=== PATIENT | female | born 1955 | race Caucasian/White ===

== ENCOUNTER 2018-02-02 17:06 | Outpatient (REF) | payer MEDICAID, SELFPAY ==
[2018-02-02 20:27] LABS: Casts Negative LPF (Negative); Epithelial Cells Moderate HPF (Negative); Mucus Trace (Negative); RBC 0-2 (0-2)
[2018-02-02 20:28] LABS: C & S Indicated? No/Sq. Contamination
[2018-02-02 20:29] LABS: Crystals Negative HPF (Negative)
[2018-02-04 14:39] LABS: Chlamydia Result Negative; GC Result Negative; Specimen Description URINE
[2018-02-04 18:12] LABS: Bacteria Few HPF (Negative)
== END 2018-02-02 17:26 ==
LOC: NCHCN 17:06
PROVIDERS: PCP Internal Medicine; Visit Provider Physician Assistant Medical
DX: R39.15 Urgency of urination (principal); M25.512 Pain in left shoulder
CPT/HCPCS: 87491; 87591; 81015; 87086

== ENCOUNTER 2018-02-10 11:01 | Outpatient (CLI) | payer MEDICAID, SELFPAY ==
--- NOTE | 2018-02-10 10:39 | DI.RAD_ITS ---
SYMPTOM/DIAGNOSIS: PAIN, FELL, M25.512 LEFT SHOULDER: There is spurring at the undersurface of the acromion. Mild spurring is seen at the glenoid. The glenohumeral joint space is well maintained. IMPRESSION: Degenerative changes, greatest at the undersurface of the acromion.
== END 2018-02-10 11:21 ==
PROVIDERS: PCP Internal Medicine; Visit Provider Physician Assistant Medical
DX: M25.512 Pain in left shoulder (principal); M19.012 Primary osteoarthritis, left shoulder
CPT/HCPCS: 73030

== ENCOUNTER 2018-02-25 10:51 | Outpatient (CLI) | payer MEDICAID, SELFPAY | END 2018-02-25 11:11 | PROVIDERS: PCP Internal Medicine; Visit Provider Nurse Practitioner Gerontology | DX: R69 Illness, unspecified (principal) | CPT/HCPCS: 82565 ==

== ENCOUNTER 2018-06-06 01:10 | Outpatient (CLI) | payer MEDICAID, SELFPAY | END 2018-06-06 01:30 | PROVIDERS: PCP Internal Medicine; Visit Provider Nurse Practitioner Gerontology | DX: R69 Illness, unspecified (principal) | CPT/HCPCS: 36415; 82565 ==

== ENCOUNTER 2019-06-01 16:17 | Outpatient (REF) | payer MEDICARE, MEDICAID, SELFPAY | END 2019-06-01 16:37 | LOC: NCHCN 16:17 | PROVIDERS: PCP Internal Medicine; Visit Provider Nurse Practitioner Family | DX: N39.0 Urinary tract infection, site not specified (principal) | CPT/HCPCS: 87086 ==

== ENCOUNTER 2019-08-24 15:22 | Outpatient (REF) | payer MEDICARE, MEDICAID, SELFPAY ==
[2019-08-24 19:32] LABS: ALT 40 U/L (14-59); AST 22 U/L (15-37); Anion Gap 9.4 mmol/L (3-11); BUN 20 mg/dL (7-18); CO2 25.6 mmol/L (21.0-32.0); CREATININE 1.37 mg/dL (0.55-1.02); Calcium 9.1 mg/dL (8.5-10.1); Calculated LDL 94 mg/dL (<100); Chloride 106 mmol/L (98-107); Cholesterol 181 mg/dL (<200); Estimated GFR 38.57 (mL/min/1.73m2); Glucose 106 mg/dL (74-106); HDL Cholesterol 72 mg/dL (40-60); Potassium 4.5 mmol/L (3.5-5.1); Sodium 141 mmol/L (136-145); Triglyceride 75 mg/dL (<150)
[2019-08-24 19:49] LABS: Creatine Kinase 128 U/L (26-192)
== END 2019-08-24 15:42 ==
LOC: NCHCN 15:22
PROVIDERS: PCP Internal Medicine; Visit Provider Nurse Practitioner Family
DX: I10 Essential (primary) hypertension (principal); E78.5 Hyperlipidemia, unspecified; N39.0 Urinary tract infection, site not specified
CPT/HCPCS: 80048; 80061; 82550; 84450; 84460; 87086

== ENCOUNTER 2019-10-10 16:42 | Outpatient (REF) | payer MEDICARE, MEDICAID, SELFPAY | END 2019-10-10 17:02 | LOC: NCHCN 16:42 | PROVIDERS: PCP Internal Medicine; Visit Provider Physician Assistant | DX: N39.0 Urinary tract infection, site not specified (principal) | CPT/HCPCS: 87086 ==

== ENCOUNTER 2019-12-11 20:12 | Outpatient (REF) | payer MEDICARE, MEDICAID, SELFPAY | END 2019-12-11 20:32 | LOC: NCHCN 20:12 | PROVIDERS: PCP Internal Medicine; Visit Provider Physician Assistant | DX: N39.0 Urinary tract infection, site not specified (principal) | CPT/HCPCS: 87086 ==

== ENCOUNTER 2020-01-26 12:36 | Outpatient (REF) | payer MEDICARE, MEDICAID, SELFPAY ==
[2020-01-30 07:27] LABS: Patient Race White; SARS-CoV-2 RNA Undetected (Undetected); SARS-CoV-2 Specimen Source Nasal
== END 2020-01-26 12:56 ==
LOC: NCHCN 12:36
PROVIDERS: PCP Internal Medicine; Visit Provider Physician Assistant
DX: Z20.828 Contact with and (suspected) exposure to other viral communicable diseases (principal)
CPT/HCPCS: U0003

== ENCOUNTER 2020-02-12 01:03 | Outpatient (CLI) | payer MEDICARE, MEDICAID, SELFPAY ==
[2020-02-12 08:13] LABS: CREATININE 1.33 mg/dL (0.55-1.02); Estimated GFR 39.92 (mL/min/1.73m2)
[2020-02-12] MEDS: Normal Saline - Diluent 50 ML VIAL IV (09:07)
[2020-02-12] MEDS: Omnipaque 350 MG/ML 100 ML BTL IJ (09:08)
--- NOTE | 2020-02-12 09:10 | DI.CT_ITS ---
EXAM: CT ABDOMEN PELVIS WO/W CLINICAL HISTORY: UTI,N39.0,URINARY SYMPTOMS,R39.9,CHRONIC PELVIC PRESSURE. TECHNIQUE: Imaging Protocol: Axial computed tomography images with coronal and sagittal reformatted images were created and reviewed CONTRAST MATERIAL: Intravenous: Omnipaque 350 Contrast volume:100 ml Oral: None COMPARISON: No exams were available for comparison FINDINGS: Performed without and with IV contrast. Visualized lung bases: No pleural effusions. No nodules. ABDOMEN: There is no ascites. LIVER: There are no focal hepatic lesions nor dilatation of intrahepatic ducts. GALLBLADDER/BILIARY: No obvious gallbladder pathology. CBD is not dilated. PANCREAS: No evidence of pancreatic mass nor dilatation of the pancreatic duct. SPLEEN: Spleen is not enlarged. There are no intrasplenic lesions. Splenic and portal veins are winters nt. ADRENALS: There are no significant adrenal masses. KIDNEYS: No calculi nor hydronephrosis. No solid renal masses. There are prominent bilateral parapelv ic cysts in both kidneys noted. Renal pelves are splayed over the cysts but not obstructed. Ureters are not dilated. No obvious abnormality in the urinary bladder. ABDOMINAL AORTA: Abdominal aorta is not enlarged and there is no [id number] adenopat hy. ABDOMINAL WALL/GI: No evidence of significant anterior abdominal wall hernia. No bowel obstruction. PELVIS: LYMPH NODES: There is no intrapelvic nor inguinal adenopathy. GI: No evidence of appendicitis.No evidence of sigmoid diverticulitis. URINARY BLADDER: No calculi nor masses evident REPRODUCTIVE: Uterus size upper normal. Fundus of the uterus slightly indents the anterior wall of t he urinary bladder. No abnormal adnexal masses nor free fluid. OSSEOUS: No significant osseous lesions. IMPRESSION: 1. There are bilateral parapelvic cysts in both kidneys. The renal pelves are splayed over the cyst but there is no hydronephrosis. No other significant renal findings. 2. Uterus size is upper normal. No obvious large urine fibroids although the uterus does slightly in dent urinary bladder. 3. No abnormal adnexal masses and no free fluid in pelvis. 4. No ascites RADIATION DOSE DELIVERED: 2,701.48mGy.cm Total DLP DATA REPOSITORY: All CT scans at this facility are submitted to the National Radiology Data Registry (NRDR) Dose Index Registry (DIR) with the [employer] (ACR). RADIATION OPTIMIZATION: All CT scans at this facility use at least one of these dose optimization te chniques: automated exposure control; mA and/or kV adjustment per patient size (includes targeted exa ms where dose is matched to clinical indication); or iterative reconstruction.
== END 2020-02-12 01:23 ==
PROVIDERS: PCP Internal Medicine; Visit Provider Physician Assistant
DX: N28.1 Cyst of kidney, acquired (principal); N39.0 Urinary tract infection, site not specified; R39.89 Other symptoms and signs involving the genitourinary system; R10.2 Pelvic and perineal pain
CPT/HCPCS: 74178; 82565; J3490

== ENCOUNTER → 2020-03-06 12:50 | Outpatient (BNVA) | payer MEDICARE, MEDICAID, SELFPAY | PROVIDERS: PCP Internal Medicine; Referring Provider Internal Medicine; Visit Provider Nurse Practitioner Gerontology | DX: N28.1 Cyst of kidney, acquired (principal); R31.21 Asymptomatic microscopic hematuria | CPT/HCPCS: 81003; 99214 ==

== ENCOUNTER 2020-10-04 17:19 | Outpatient (REF) | payer MEDICARE, MEDICAID, SELFPAY ==
--- NOTE | 2020-10-04 16:05 | PAPFT_PTH ---
PATIENT: Haley Nicole LOC: [facility]#:[id number] AGE/SX: 65/F ROOM: RE10/04/[address]: Delmi Arvizu : 1955 BED: DIS: 10/04/2020 SPEC #: [id number] RECD: 10/07/20 13:12 STATUS: MARK RECandice #: [id number] DEISY: 10/04/20 16:[address]: Delmi Arvizu DEPT: [facility] Cytology RECD BY: Adry Tate ENTERED: 10/07/20 13:13 SP TYPE: PAPFT OTHR DR: Mazin Coronado Tissues: 1 - CX/ENDOCX FOR PAP SMEARS Procedures: PAP THIN PREP/[facility] Screening HPV DNA PROBE Comments: [id number] (CHLAMYDIA/GC)
[2020-10-04 18:32] LABS: Hemoglobin A1C 5.7 % (<5.7)
[2020-10-04 18:34] LABS: Anion Gap 9.6 mmol/L (3-11); BUN 19 mg/dL (7-18); CO2 26.4 mmol/L (21.0-32.0); CREATININE 1.1 mg/dL (0.55-1.02); Calcium 8.9 mg/dL (8.5-10.1); Chloride 105 mmol/L (98-107); Estimated GFR 49.54 (mL/min/1.73m2); Glucose 99 mg/dL (74-106); Potassium 4.3 mmol/L (3.5-5.1); Sodium 141 mmol/L (136-145)
[2020-10-09 15:21] LABS: Chlamydia Result Negative (Negative); GC Result Negative (Negative)
== END 2020-10-04 17:20 | disposition home or self-care (01) ==
LOC: NCHCN 17:19
PROVIDERS: PCP Internal Medicine; Visit Provider Physician Assistant
DX: I10 Essential (primary) hypertension (principal); E78.5 Hyperlipidemia, unspecified; R73.9 Hyperglycemia, unspecified; N28.9 Disorder of kidney and ureter, unspecified; Z12.4 Encounter for screening for malignant neoplasm of cervix; Z01.419 Encounter for gynecological examination (general) (routine) without abnormal findings; Z87.42 Personal history of other diseases of the female genital tract; Z86.19 Personal history of other infectious and parasitic diseases; Z91.89 Other specified personal risk factors, not elsewhere classified; Z11.51 Encounter for screening for human papillomavirus (HPV); Z11.3 Encounter for screening for infections with a predominantly sexual mode of transmission
CPT/HCPCS: 80048; 87491; 87591; 88142; 83036; 87624

== ENCOUNTER 2021-01-03 00:35 | Outpatient (CLI) | payer MEDICARE, MEDICAID, SELFPAY ==
--- NOTE | 2021-01-03 | DI.DEXA_ITS ---
Exam(s) XR DEXA BONE DENSITY W/WO CHICO EXAM: XR DEXA BONE DENSITY W/WO CHICO CLINICAL HISTORY: SCREENING FOR OSTEOPOROSIS IN POSTMENOPAUSAL WOMAN,Z78.0 TECHNIQUE: COMPARISON: No exams were available for comparison FINDINGS: DEXA scan was performed according to the usual protocol. The lateral vertebral scanogram shows no evidence of a vertebral compression fracture. Left hip scanning shows T-score -0.3 with left femoral neck T-score -1.5. Lumbar spine scanning shows T-score -0.9. Left forearm scanning shows T-score 0.3. IMPRESSION: Findings are consistent with osteopenia according to WHO criteria. RADIATION DOSE DELIVERED: Total DLP
--- NOTE | 2021-01-03 | DI.MAMMO_ITS ---
Exam(s) MAMMO SCREENING EXAM: MAMMO SCREENING CLINICAL HISTORY: SCREENING, Z12.31 TECHNIQUE: Mammograms were interpreted according to the usual protocol including computer analysis w [employer] CAD system, tomosynthesis and C-view imaging. COMPARISON: FINDINGS: Breasts are of moderate density. No dominant mass or clumped microcalcification is identified in eit her breast. Current examination is compared with previous examination of August 2017 and there is incr eased prominence of a focal area of asymmetric density projected in the central portion of right [address] on CC view only. Additional mammographic views of this area are requested to include CC spot comp ression view of the right breast. No other significant change seen. IMPRESSION: Additional mammographic views of the right breast requested as described above. Breast ultrasound m ay be indicated as well depending on the results additional mammographic views. BI-RADS Category 0 - Assessment Incomplete: Need additional imaging evaluation Breast Density - Category B - Scattered areas of fibroglandular density
== END 2021-01-03 00:55 ==
PROVIDERS: PCP Internal Medicine; Visit Provider Physician Assistant
DX: Z12.31 Encounter for screening mammogram for malignant neoplasm of breast (principal); R92.8 Other abnormal and inconclusive findings on diagnostic imaging of breast; M85.88 Other specified disorders of bone density and structure, other site; Z78.0 Asymptomatic menopausal state
CPT/HCPCS: 77063; 77067; 77080

== ENCOUNTER 2022-10-20 16:34 | Outpatient (REF) | payer MEDICARE, SELFPAY ==
[2022-10-20 21:10] LABS: ALT 19 U/L (14-59); AST 21 U/L (15-37); Albumin 3.5 g/dL (3.4-5.0); Alkaline Phosphatase 71 U/L (46-116); Anion Gap 7.1 mmol/L (3-11); BUN 17 mg/dL (7-18); Bilirubin, Total 0.4 mg/dL (0.2-1.0); CO2 25.9 mmol/L (21.0-32.0); CREATININE 1.1 mg/dL (0.55-1.02); Chloride 107 mmol/L (98-107); Estimated GFR 54.39 (mL/min/1.73m2); Glucose 99 mg/dL (74-106); Potassium 4.6 mmol/L (3.5-5.1); Sodium 140 mmol/L (136-145); Total Protein 7.4 g/dL (6.4-8.2)
[2022-10-20 21:26] LABS: Abs Immature Grans 0.02 10^3/uL (0.0-0.06); Absolute Basophil Count 0.05 10^3/uL (0.0-0.2); Absolute Eosinophil Count 0.26 10^3/uL (0.0-0.7); Absolute Lymphocyte Count 2.29 10^3/uL (1.2-3.4); Absolute Neutrophil Count 3.97 10^3/uL (1.2-6.7); Basophils % 0.7; Eosinophils % 3.6; HCT 44.4 % (36.0-46.0); Immature Grans % 0.3; Lymphocytes % 31.4; MCH 30.4 pg (27.0-33.0); MCHC 33.8 % (32.0-36.0); MCV 90 fL (80-95); MPV 11.1 fL (8.0-11.0); Monocytes % 9.6; Neutrophils % 54.4; Platelet Count 304 10^3/uL (130-400); RBC 4.94 10^6/uL (3.93-5.22); RDW 13.7 % (11.7-14.6); RDW-SD 45.4 fL; WBC 7.29 10^3/uL (4.4-10.8)
[2022-10-20 22:42] LABS: Hemoglobin A1C 5.5 % (<5.7)
== END 2022-10-20 16:35 | disposition home or self-care (01) ==
LOC: NCHCN 16:34
PROVIDERS: PCP Internal Medicine; Visit Provider Physician Assistant
DX: R73.9 Hyperglycemia, unspecified (principal); I10 Essential (primary) hypertension; E78.5 Hyperlipidemia, unspecified; N28.9 Disorder of kidney and ureter, unspecified
CPT/HCPCS: 80053; 83036; 85025

== ENCOUNTER → 2023-04-28 08:33 | Outpatient (BNVA) | payer MEDICARE, SELFPAY | PROVIDERS: PCP Physician Assistant; Referring Provider Physician Assistant; Visit Provider Physical Therapy Assistant | DX: Z12.11 Encounter for screening for malignant neoplasm of colon (principal) ==

== ENCOUNTER 2023-05-10 08:21 | Day surgery (SDC) | payer MEDICARE, SELFPAY ==
--- NOTE | 2023-05-09 18:24 | W.PM.DSUDISC ---
Date of service: 05/10/23 Time of Service: 09:59 Discharge Plan Disposition Patient Disposition: Home Condition: Good Discharge Details Reason For Visit: screening colonoscopy Attending Provider: Marco Mccormick Primary Care Provider: Delmi Arvizu Home Meds and New Rx's Prescriptions: Continued atorvastatin [Lipitor] 10 mg tablet 10 mg PO DAILY aspirin [Adult Aspirin Regimen] 81 mg tablet,delayed release (DR/EC) 81 mg PO DAILY losartan 50 mg tablet 50 mg PO DAILY albuterol sulfate [Ventolin HFA] 90 mcg/actuation HFA aerosol inhaler 2 puff inhalation Q6H PRN tafluprost (PF) 0.0015 % dropperette 1 drp ophthalmic (eye) QPM Patient Comments: INSTILL 1 DROP IN THE RIGHT EYE EVERY NIGHT AT BEDTIME Discontinued polyethylene glycol 3350 17 gram/dose powder 238 g PO ONCE Qty: 238 0RF Rx Instructions: take per colonoscopy instructions bisacodyl [Dulcolax (bisacodyl)] 5 mg tablet,delayed release (DR/EC) 5 mg PO ONCE Qty: 4 0RF Rx Instructions: take per colonoscopy instructions Discharge Instructions Instructions: Diverticulosis (GEN), Diverticulosis Diet (GEN) Additional Instructions: Mazin, we were able to complete your colonoscopy today without any difficulty. I did not see any tumors, polyps, or anything else worrisome. You do have diverticulosis. Diverticula are little weak spots in the muscular wall of the colon. They typically accumulate as we get older. They can get infected and inflamed, and when that happens, patients typically experience quite a bit of pain usually on the left side or lower part of their abdomen. This is often times associated with fevers, and typically, patients are treated with antibiotics. I have attached some general information here regarding diverticulosis of preventative measures. If you have any questions, please do not hesitate to call. Otherwise, I recommend another colonoscopy in 10 years. 1. If tolerated, consume a soft, low fiber diet for 1-2 days. 2[address] Do not drive, drink alcohol, operate machinery, make critical decisions, or do activities that require coordination or balance for 24 hours. 3. Because air was put into your colon during the procedure, expelling air from your rectum (passing gas or farting) is normal. 4. You may not have a bowel movement for 1-3 days because of the colonoscopy prep. This is normal. 5. Go directly to the emergency room if you notice any of the following: Develop chills (warm to touch), or if you have a thermometer and your temperature is above 101 Difficulty breathing or difficultly swallowing Persistent vomiting Severe abdominal pain, other than gas cramps Severe chest pain Black, tarry stools Any bleeding ? exceeding one tablespoon 6. Call your physician if the site where your intravenous was started becomes red, swollen, painful, and warm to touch. 7. Your physician has reviewed your pre-procedure medications. Please continue to take those medications as previously ordered. You will be given specific information/education regarding any changes to your medications before leaving. Activity:: Activity as Tolerated Diet:: As Tolerated Discharge Orders Discharge Orders: Discharge Order (Routine); Ordered 05/09/23 Ordered By: Marco Mccormick DS: Diagnosis Discharge Diagnosis (1) Encounter for screening colonoscopy: Status: Acute Asessment and Plan: Diverticulosis; otherwise negative screening colonoscopy. Recommend 10-year follow-up
--- NOTE | 2023-05-09 18:25 | W.COLOREPORT ---
Date of service: 05/10/23 Time of Service: 10:00 Colonoscopy Report Date of procedure: 05/10/23 Pre-op diagnosis general: screening colonoscopy Post-op diagnosis procedure note: other (Diverticulosis) Procedure: colonoscopy Surgeon: Marco Mccormick Anesthesia Type: General:No Airway Estimated blood loss (mL): 0 Pathology: none sent Complications: None Disposition: same day Indications: Haley is a 67 year old woman who needs her next screening colonoscopy Prep: Miralax/Dulcolax Procedure Start Time: 09:36 Procedure End Time: 09:48 Retraction Time: 7 Findings: Diverticulosis Procedure Description: After the induction of monitored anesthetic care, and with the patient in left lateral decubitus position, I began by performing an external anorectal exam.? Perineum and skin were normal, as was the anal verge.? There was evidence of external hemorrhoids.? Next, I performed a digital rectal exam.? I did not appreciate any abnormal findings.? Next, I advanced a colonoscope into the rectal vault.? I performed retroflexion.? This appeared normal.? Using insufflation, I then advanced the colonoscope beyond the rectal folds and into the sigmoid colon before advancing towards the cecum.? There was sigmoid diverticulosis, and some occasional diverticula scattered along the length of the ascending and transverse colons as well..? The scope was noted to be in the cecum by identification of the ileocecal valve and appendiceal orifice.? I then began withdrawing the colonoscope using repeated irrigation as necessary for full evaluation of the colonic mucosa. ?Once the scope was withdrawn to the level of the rectum, great care was taken to examine portions of the rectal folds.? I did not see any signs of tumors, or polyps. Finally, the scope was withdrawn and the patient was brought to the same-day surgery recovery unit as the anesthetic wore off. ?The findings and instructions were shared with the patient prior to discharge. [place] Bowel Prep [place] Bowel Prep Right Colon: 3 Left Colon: 2 Transverse Colon: 3 Total Score: 8
[2023-05-10 08:28] VITALS: BP 159/79; PULSE 88; RESP 16; TEMP 36.5; O2SAT 98
[2023-05-10] MEDS: Lactated Ringers 1,000 ML 80 ML IV (09:01)
--- NOTE | 2023-05-10 09:18 | W.ANESPRE ---
General Info Date of Service Date Performed: 05/10/23 Height: 4 ft 11 in Weight: 75.7 kg Body Mass Index (BMI): 33.7 Surgical Procedure: Operation Date: 05/10/23 09:50 Proposed Procedure Side Surgeon amos Mccormick MD Meds Allergies and Home Medications Allergies Allergy/AdvReac Type Severity Reaction Status Date / Time lisinopril AdvReac cough Verified 05/10/23 08:34 Home Medication Medication Instructions Recorded aspirin 81 mg tablet,delayed 81 mg PO DAILY 02/10/18 release (Adult Aspirin Regimen) atorvastatin 10 mg tablet (Lipitor) 10 mg PO DAILY 02/10/18 losartan 50 mg tablet 50 mg PO DAILY 10/30/19 albuterol sulfate 90 mcg/actuation 2 puff inhalation Q6H PRN 12/08/22 aerosol inhaler (Ventolin HFA) tafluprost (PF) 0.0015 % eye drops 1 drp ophthalmic (eye) QPM 05/06/23 in a dropperette Current Visit Medications: Current Medications Generic Name Dose Route Start Last Admin Trade Name Freq PRN Reason Stop Dose Admin Hyoscyamine Sulfate 0.125 mg 05/09/23 18:29 Hyoscyamine 0.125 Mg Sl/Oral/Chew SL 06/08/23 18:28 DIRECTED PRN Ringer's Solution 1,000 mls @ 80 mls/hr 05/10/23 06:00 05/10/23 09:01 IV 06/06/23 23:59 80 mls/hr INFUSION SHYANNE Administration IV Miscellaneous Supplies 1 each 05/10/23 06:00 Iv Access IV 06/06/23 23:59 DIRECTED SHYANNE Ondansetron HCl 4 mg 05/09/23 18:29 Ondansetron 4 Mg/2 Ml Vial IVP 06/08/23 18:28 Q4H PRN PRN Nausea / Vomiting Sodium Chloride 0 ml 05/10/23 06:00 Normal Saline Flush 10 Ml Syr IV 06/06/23 23:59 PRN PRN Sodium Chloride 0 ml 05/10/23 06:00 Normal Saline 10 Ml Vial IJ 06/06/23 23:59 DIRECTED PRN Sterile Water 0 ml 05/10/23 06:00 Water,Injection,Sterile 10 Ml Vial IJ 06/06/23 23:59 DIRECTED PRN PFSH Active Problems Active Problems: Problem Status Onset Code Encounter for screening colonoscopy Z12.11 Hypertension I10 Osteopenia M85.80 Carotid artery stenosis I65.29 Asymptomatic microscopic hematuria R31.21 Renal cyst N28.1 Medical History Medical History (Updated 05/09/23 @ 18:24 by Marco Mccormick MD) Hirsutism Allergic rhinitis Blindness of right eye Central retinal vein occlusion GERD (gastroesophageal reflux disease) Mild exercise-induced asthma Renal insufficiency HLD (hyperlipidemia) Benign essential hypertension Tobacco Smoking/Tobacco Use Status: Former Tobacco Use Alcohol Alcohol Intake: current Alcohol intake frequency: a few times a month Substance Use Substance use: Never Substance use type: does not use Vital Signs and Lab Results Vital Signs Most Recent Vital Signs in EMR: Most Recent Vital Signs Temp Pulse Resp BP Pulse Ox 36.5 C 88 16 159/79 H 98 05/10/23 08:28 05/10/23 08:28 05/10/23 08:28 05/10/23 08:28 05/10/23 08:28 Lab Results Blood Type / Crossmatch: No Data to Display Complete Blood Count: No Data to Display Complete Metabolic Panel: No Data to Display Liver Function Panel: No Data to Display Coagulation Panel: No Data to Display Cardiac Panel: No Data to Display Arterial Blood Gas: No Data to Display Venous Blood Gas: No Data to Display Pancreas Panel: No Data to Display Thyroid Panel: No Data to Display Infectious Disease: No Data to Display Blood Cultures: No Data to Display Toxicology Panel: No Data to Display Anesthesia Assessment and Plan Anesthesia History Personal History: No History of Anesthesia Complications Family History: No Family History of Anesthesia Complications Exercise Tolerance Exercise Tolerance: Metabolic Equivalents>4 Pertinent Negatives Pertinent Negatives: No Symptoms of GERD, No Major Cardiovascular Symptoms or Complaints, No Major Pulmonary Symptoms or Complaints and No History of CVA/TIA Cardiac & Pulmonary Exam Cardiac Exam: Normal S1/S2 Heart Sounds Pulmonary Exam: Clear Bilateral Breath Sounds Implantable Cardiac Device Does patient have a Pacemaker or an ICD?: No Airway Exam Known Difficult Airway: No Mallampati Class: 2 Mouth Opening: Normal (> 3cm) Thyromental Distance: Greater than 3 cm Neck Range of Motion: Full ROM Neck Circumference: Normal Teeth Condition: Normal Dentition ASA Classification ASA Score: ASA 2 Emergency Case?: No NPO Status NPO Status: NPO Clears >2 hours, Solids >8 hours Anesthesia Plan Resuscitation Status: Full Code Anesthesia Technique: General Anesthesia Airway Planned: Natural Airway Monitors Used: Standard Monitors Preoperative Comments:: Previous colonoscopy unremarkable. Rare GERD treated with Tums.
[2023-05-10 09:24] VITALS: BMI 33.7
[2023-05-10 09:57] VITALS: BP 129/60; PULSE 80; RESP 16; TEMP 36.5; O2SAT 97
--- NOTE | 2023-05-10 10:11 | W.ANESPOSTOP ---
Postoperative Evaluation Date, Time and Location Date Performed: 05/10/23 Time Performed: 10:09 Patient Location: Day Surgery Unit Vital Signs Most Recent Imported Vital Signs: Most Recent Vital Signs Temp Pulse Resp BP Pulse Ox 36.5 C 80 16 129/60 97 05/10/23 09:57 05/10/23 09:57 05/10/23 09:57 05/10/23 09:57 05/10/23 09:57 Pain Score Most Recent Pain Score: Most Recent Pain Score Pain Level 0 05/10/23 09:57 Assessment Mental Status: Awake (Alert & Oriented to Patient Baseline) Airway and Respiratory Function: Patent airway with normal (patient baseline) respiratory exam Cardiovascular Function: Hemodynamically Stable Hydration Status: Adequately Hydrated Nausea & Vomiting: No Nausea or Vomiting Pain: Pain is tolerable per patient (some gas cramping) Peripheral Nerve Block: Patient did not receive a nerve block
[2023-05-10 10:30] VITALS: BP 137/69; PULSE 77; RESP 16; TEMP 36.5; O2SAT 96
== END 2023-05-10 08:22 | disposition home or self-care (01) ==
LOC: SUR 08:21
PROVIDERS: PCP Physician Assistant; Visit Provider Surgery
PROC: 0DJD8ZZ Inspection of Lower Intestinal Tract, Via Natural or Artificial Opening Endoscopic (ICD-10-PCS; CPT 45378; principal; 2023-05-10 09:45)
DX: Z12.11 Encounter for screening for malignant neoplasm of colon (principal); K57.30 Diverticulosis of large intestine without perforation or abscess without bleeding
CPT/HCPCS: G0121; J2001; J2704

== ENCOUNTER 2023-10-21 02:01 | Outpatient (CLI) | payer MEDICARE, SELFPAY ==
--- NOTE | 2023-10-21 | DI.MAMMO_ITS ---
Exam(s) MAMMO SCREENING EXAM: MAMMO SCREENING CLINICAL HISTORY: Z12.31 Screening TECHNIQUE: Bilateral full field digital CC and MLO mammographic images were obtained with 3D tomosyn thesis and utilizing computer aided detection (CAD). COMPARISON: Available for comparison. FINDINGS: Masses/Architectural Distortion: None seen. Microcalcifications: No suspicious pleomorphic-type are seen. Skin Thickening/Nipple Retraction: None. IMPRESSION: 1. No significant interval change with no specific features of malignancy noted. 2. Unless there is more urgent need, screening mammography is recommended, as per [employer] guidelines. BI-RADS Category 1 - Negative Breast Density - Category B - Scattered areas of fibroglandular density Breast density category C or D implies that the patient has dense breast tissue. Dense breast tissue is very common and is not abnormal but dense breast tissue can make it harder to find cancer on a ma mmogram. Also, dense breast tissue may increase their breast cancer risk. This information about the result of the mammogram report was provided to the patient to raise their awareness. Use this report when you speak with the patient about their risks for breast cancer, which includes their family hist ory. At that time, you may recommend for more screening tests (Ultrasound or MRI) as they might be us eful based on their risk. A negative radiographic report should not delay biopsy if a dominant or clinically suspicious mass is present. Up to ten percent of cancers are not identified on mammography. A negative report may reinforce clinical impression. Adenosis and dense breasts may obscure an underlying neoplasm. False positive reports average 6 to 10%. Patient will receive a letter notifying them of these results.
--- NOTE | 2023-10-21 | DI.US_ITS ---
Exam(s) US CAROTID EXAM: US CAROTID CLINICAL HISTORY: I65.23 Carotid artery stenosis, bilat mild. TECHNIQUE: Ultrasound carotids performed using grayscale, color-flow, and spectral Doppler imaging. COMPARISON: No exams were available for comparison FINDINGS: RIGHT CAROTID ARTERY: Plaque: Moderate calcific plaque is seen in the carotid bulb. Velocity elevation: No hemodynamically significant velocity elevation is present. LEFT CAROTID ARTERY: Plaque: There is mild calcific plaque seen in the carotid bulb. Velocity elevation: No hemodynamically significant velocity elevation is present. VERTEBRAL ARTERIES: Antegrade flow. Measurements: R Bulb: 124.6cm/s PS / 35.3cm/s ED R CCA: 62.5cm/s PS / 12.2cm/s ED R ECA: 81.1cm/s PS / 10.1cm/s ED R ICA Prox: 93.5cm/s PS / 24.1cm/s ED R ICA Mid: 75.2cm/s PS / 15cm/s ED R ICA Distal: 98.9cm/s PS /27.7cm/s ED R Vert: 62.4cm/s PS / 18.6cm/s ED R SVR: 2 R DVR: 2.9 L Bulb: 67.2cm/s PS / 20.6cm/s ED L CCA: PS / 19.3cm/s ED L ECA: 81.5cm/s PS / 8.9cm/s ED L ICA Prox: 68.7cm/s PS / 22.8cm/s ED L ICA Mid: 93.3cm/s PS / 34cm/s ED L ICA Distal: 78.8cm/s PS / 24.4cm/s ED L Vert: 26.6cm/s PS / 6.8cm/s ED L SVR: 1.1 L DVR: 1.8 IMPRESSION: No evidence for hemodynamically significant carotid stenosis. Criteria for Carotid Stenosis: Normal: ICA PSV <125 cm/s no plaque or intimal thickening is visible. <50% stenosis: ICA PSV <125 cm/s and plaque or intimal thickening is visible. 50-69% stenosis: ICA PSV is 125-250 cm/s and plaque is visible. >70% stenosis to near occlusion: ICA PSV >250 cm/s with visible plaque and luminal narrowing. DATA REPOSITORY:
--- NOTE | 2023-10-21 | DI.DEXA_ITS ---
Exam(s) XR DEXA BONE DENSITY W/WO CHICO EXAM: XR DEXA BONE DENSITY W/WO CHICO CLINICAL HISTORY: Z78.0 Postemenopausal,M85.80 Osteopenia TECHNIQUE: COMPARISON: CR XR DEXA BONE DENSITY W/WO CHICO from 01/03/2021 FINDINGS: Lateral Spine Image: Unremarkable. No compression deformities identified. Left hip: Total T-Score: -0.6. This compares to -0.3 on the prior examination. Total Z-Score: 1.0 T- and Z-scores: No evidence of osteoporosis. Lumbar Spine: Total T-Score: -0.8. This compares to -1.0 on the prior examination. Total Z-Score: 1.4 T- and Z-scores: No evidence of osteoporosis. IMPRESSION: No evidence of osteoporosis.
== END 2023-10-21 02:21 ==
LOC: DI 02:01
PROVIDERS: PCP Physician Assistant; Visit Provider Physician Assistant
DX: Z78.0 Asymptomatic menopausal state (principal); I65.23 Occlusion and stenosis of bilateral carotid arteries; Z13.820 Encounter for screening for osteoporosis
CPT/HCPCS: 77063; 77067; 77080; 93880

== ENCOUNTER 2023-12-10 11:33 | Outpatient (REF) | payer MEDICARE, SELFPAY | END 2023-12-10 11:34 | disposition home or self-care (01) | LOC: NCHCN 11:33 | PROVIDERS: PCP Physician Assistant; Visit Provider Physician Assistant | DX: R82.998 Other abnormal findings in urine (principal) | CPT/HCPCS: 87077; 87086; 87186 ==

== ENCOUNTER 2023-12-13 10:09 | Outpatient (REF) | payer MEDICARE, SELFPAY ==
[2023-12-13 19:21] LABS: Abs Immature Grans 0.01 10^3/uL (0.0-0.06); Absolute Basophil Count 0.06 10^3/uL (0.0-0.2); Absolute Eosinophil Count 0.36 10^3/uL (0.0-0.7); Absolute Lymphocyte Count 1.51 10^3/uL (1.2-3.4); Absolute Monocyte Count 0.45 10^3/uL (0.1-0.8); Absolute Neutrophil Count 2.81 10^3/uL (1.2-6.7); Basophils % 1.2 %; Eosinophils % 6.9 %; HGB 14.8 g/dL (11.2-15.7); Immature Grans % 0.2 %; MCH 30.5 pg (27.0-33.0); MCHC 33.6 % (32.0-36.0); MCV 91 fL (80-95); MPV 10.8 fL (8.0-11.0); Monocytes % 8.7 %; Platelet Count 253 10^3/uL (130-400); RBC 4.86 10^6/uL (3.93-5.22); RDW 13.9 % (11.7-14.6); RDW-SD 46.5 fL
[2023-12-13 20:34] LABS: ALT 24 U/L (14-59); AST 21 U/L (15-37); Albumin 3.6 g/dL (3.4-5.0); Alkaline Phosphatase 66 U/L (46-116); Anion Gap 10.5 mmol/L (3-11); BUN 20 mg/dL (7-18); Bilirubin, Total 0.54 mg/dL (0.2-1.0); CO2 23.5 mmol/L (21.0-32.0); Calcium 8.7 mg/dL (8.5-10.1); Calculated LDL 87 mg/dL (<100); Chloride 108 mmol/L (98-107); Cholesterol 175 mg/dL (<200); Estimated GFR 60.61 (mL/min/1.73m2); Glucose 102 mg/dL (74-106); HDL Cholesterol 77 mg/dL (40-60); Potassium 4.5 mmol/L (3.5-5.1); Sodium 142 mmol/L (136-145); Total Protein 7.1 g/dL (6.4-8.2); Triglyceride 58 mg/dL (<150)
== END 2023-12-13 10:10 | disposition home or self-care (01) ==
LOC: NCHCN 10:09
PROVIDERS: PCP Physician Assistant; Visit Provider Physician Assistant
DX: E78.5 Hyperlipidemia, unspecified (principal); N28.9 Disorder of kidney and ureter, unspecified
CPT/HCPCS: 80053; 80061; 85025

== ENCOUNTER 2024-02-28 01:31 | Outpatient (CLI) | payer MEDICARE, SELFPAY ==
--- NOTE | 2024-02-28 | DI.MRI_ITS ---
Exam(s) MR LOWER JOINT LT WO EXAM: MR LOWER JOINT LT WO CLINICAL HISTORY: Sprain of ACL of lt knee 3 mos ago, S83.512A, trouble weightbearing,. TECHNIQUE: Multiplanar multisequence MRI was performed. COMPARISON: No exams were available for comparison FINDINGS: BONES: There is no fracture or contusion pattern. JOINTS: A moderate-sized joint effusion is present. Articular cartilage: Patellofemoral joint: Articular cartilage is unremarkable. Medial femoral tibial joint: Articular cartilage is unremarkable. Lateral femoral tibial joint: Articular cartilage is unremarkable. LIGAMENTS/TENDONS: Anterior Cruciate: Edema in anterior cruciate ligament but no visible focal tear. Posterior Cruciate: Unremarkable. Medial Collateral:Some surrounding fluid but no visible tear. Lateral Collateral ligament complex: Unremarkable. Extensor mechanism: Unremarkable. Medial retinaculum: Unremarkable. Lateral retinaculum: Unremarkable. Popliteus: Unremarkable. MENISCI: The medial meniscus is abnormal complex increased signal in the body as well as some linear high sign al in the posterior horn which extends to the articular surface. The lateral meniscus is unremarkable. MUSCLES: Unremarkable. SOFT TISSUES: Unremarkable mild anterior edema. IMPRESSION: Tears of the posterior horn and body of the medial meniscus. Question of ACL and MCL sprains. DATA REPOSITORY:
== END 2024-02-28 01:51 ==
LOC: DI 01:31
PROVIDERS: PCP Physician Assistant; Visit Provider Internal Medicine
DX: S83.512D Sprain of anterior cruciate ligament of left knee, subsequent encounter (principal); X58.XXXD Exposure to other specified factors, subsequent encounter
CPT/HCPCS: 73721

== ENCOUNTER 2024-03-07 11:17 | Outpatient (CLI) | payer MEDICARE, SELFPAY ==
--- NOTE | 2024-03-07 10:30 | DI.RAD_ITS ---
Exam(s) XR KNEE LT 4V AP,LAT,SOLIS,PAT EXAM: XR KNEE LT 4V AP,LAT,SOLIS,PAT CLINICAL HISTORY: knee pain. TECHNIQUE: 2D digital imaging was performed. Three views. COMPARISON: No exams were available for comparison FINDINGS: BONES: No acute fracture is present. No bony destructive lesion is seen. JOINTS: The joint spaces are maintained. There is minimal periarticular spurring. The knee is ashley lly aligned. No joint effusion is seen. SOFT TISSUE: Normal. IMPRESSION: Minimal degenerative changes. DATA REPOSITORY: RADIATION DOSE DELIVERED:
== END 2024-03-07 11:18 | disposition home or self-care (01) ==
LOC: DIORS 11:17
PROVIDERS: PCP Physician Assistant; Referring Provider Physician Assistant; Visit Provider Physician Assistant
DX: S83.412A Sprain of medial collateral ligament of left knee, initial encounter; S83.512A Sprain of anterior cruciate ligament of left knee, initial encounter; S83.242A Other tear of medial meniscus, current injury, left knee, initial encounter; X58.XXXA Exposure to other specified factors, initial encounter
CPT/HCPCS: 99214; 73564

== ENCOUNTER → 2024-06-12 08:48 | Outpatient (BNVA) | payer MEDICARE, SELFPAY | PROVIDERS: PCP Physician Assistant; Referring Provider Physician Assistant; Visit Provider Student in an Organized Health Care Education/Training Program | DX: S83.412A Sprain of medial collateral ligament of left knee, initial encounter (principal); S83.512A Sprain of anterior cruciate ligament of left knee, initial encounter; S83.242A Other tear of medial meniscus, current injury, left knee, initial encounter; X58.XXXA Exposure to other specified factors, initial encounter; Y93.E5 Activity, floor mopping and cleaning | CPT/HCPCS: 99213 ==

== ENCOUNTER → 2024-10-09 10:54 | Outpatient (BNVA) | payer MEDICARE, SELFPAY | PROVIDERS: PCP Physician Assistant; Visit Provider Student in an Organized Health Care Education/Training Program | DX: S83.242D Other tear of medial meniscus, current injury, left knee, subsequent encounter (principal); S83.512D Sprain of anterior cruciate ligament of left knee, subsequent encounter; S83.412D Sprain of medial collateral ligament of left knee, subsequent encounter; X58.XXXD Exposure to other specified factors, subsequent encounter | CPT/HCPCS: 99213 ==

== ENCOUNTER 2024-10-17 15:43 | Outpatient (REF) | payer MEDICARE, SELFPAY | END 2024-10-17 15:44 | disposition home or self-care (01) | LOC: NCHCN 15:43 | PROVIDERS: PCP Physician Assistant; Visit Provider Physician Assistant | DX: R82.90 Unspecified abnormal findings in urine (principal) | CPT/HCPCS: 87086 ==

== ENCOUNTER 2025-01-17 17:23 | Outpatient (REF) | payer MEDICARE, SELFPAY ==
[2025-01-17 20:45] LABS: HCT 44.9 % (36.0-46.0); HGB 15.0 g/dL (11.2-15.7); MCH 29.3 pg (27.0-33.0); MCHC 33.4 % (32.0-36.0); MCV 88 fL (80-95); MPV 10.5 fL (8.0-11.0); Platelet Count 248 10^3/uL (130-400); RBC 5.12 10^6/uL (3.93-5.22); RDW 14.0 % (11.7-14.6); RDW-SD 45.0 fL; WBC 7.24 10^3/uL (4.4-10.8)
[2025-01-17 21:06] LABS: ALT 19 U/L (10-49); AST 23 U/L (<34); Albumin 4.1 g/dL (3.4-5.0); Alkaline Phosphatase 68 U/L (46-116); Anion Gap 9.4 mmol/L (3-11); BUN 16 mg/dL (9-23); Bilirubin, Total 0.80 mg/dL (0.2-1.2); CO2 22.6 mmol/L (20.0-31.0); Calcium 8.7 mg/dL (8.3-10.6); Chloride 108 mmol/L (98-107); Ferritin 68 ng/mL (7-271); Glucose 87 mg/dL (74-106); Potassium 4.2 mmol/L (3.5-5.1); Sodium 140 mmol/L (136-145); TSH (W/Ref FT4) 1.39 uIU/mL (0.55-4.78); Total Protein 7.1 g/dL (5.7-8.2)
[2025-01-17 21:10] LABS: Iron 128 ug/dL (50-170)
[2025-01-17 21:11] LABS: Total Iron Binding Capacity 354 ug/dL (250-425); Transferrin Sat 36 % (15-50)
== END 2025-01-17 17:24 | disposition home or self-care (01) ==
LOC: NCHCN 17:23
PROVIDERS: PCP Physician Assistant; Visit Provider Physician Assistant
DX: Z86.39 Personal history of other endocrine, nutritional and metabolic disease (principal); I10 Essential (primary) hypertension
CPT/HCPCS: 80053; 85027; 82728; 83540; 83550; 84443

== ENCOUNTER 2025-02-09 16:51 | Outpatient (REF) | payer MEDICARE, SELFPAY ==
[2025-02-09 19:24] LABS: TSH (W/Ref FT4) 1.09 uIU/mL (0.55-4.78)
== END 2025-02-09 16:52 | disposition home or self-care (01) ==
LOC: NCHCN 16:51
PROVIDERS: PCP Physician Assistant; Visit Provider Nurse Practitioner
DX: R68.89 Other general symptoms and signs (principal)
CPT/HCPCS: 84443

== ENCOUNTER → 2025-02-13 00:28 | Outpatient (CLI) | payer MEDICARE, SELFPAY ==
--- NOTE | 2025-02-13 | DI.RAD_ITS ---
Exam(s) XR ABDOMEN FLAT PLATE EXAM: 2D digital imaging was performed. CLINICAL HISTORY: ABD CRAMPING, ABD PAIN,R10.84. COMPARISON: CT CT ABDOMEN PELVIS WO/W from 02/12/2020 CR XR DEXA BONE DENSITY W/WO CHICO from 10/21/2023 TECHNIQUE: Supine views of the abdomen performed. FINDINGS: BOWEL GAS PATTERN: Stomach, small bowel and colon are nondistended. Normal quantity of stool. CALCIFICATIONS: No visible radiopaque calcifications. OSSEOUS STRUCTURES: Unremarkable for age. VISUALIZED LUNG BASES: Clear. SOFT TISSUES: Unremarkable. IMPRESSION: 1. Nonobstructive bowel gas pattern. DATA REPOSITORY: RADIATION DOSE DELIVERED:
== END ==
LOC: DI 00:28
PROVIDERS: PCP Physician Assistant; Visit Provider Nurse Practitioner
DX: R10.84 Generalized abdominal pain (principal)
CPT/HCPCS: 74018